=== PATIENT | male | born 1935 | race Caucasian/White ===

== ENCOUNTER → 2016-09-06 | Outpatient (CLI) | payer MEDICARE, OTHER ==
[~2016-09-06] MED LIST: AMOXIL500 MG PO; ASPIRIN325 MG PO; BEANO150 UNIT PO; BIOTENE ORALBAL42 GM PO; BIOTENE237 ML PO; BROVANA15 MCG/2 M INH; CALTRATE 600 WI1 TAB PO; COLACE100 MG PO; DESONIDE 0.05%15 GM TOP; DETROL LA4 MG PO; DUONEB 3.0-0.5 M3 ML INH; ECONAZOLE NITRA30 GM TOP; FERROUS SULFAT325 M1 PO; FLOMAX0.4 MG PO; GAS RELIEF80 MG PO; GENICIN500 MG PO; GLUCOSAMINE CH1 EAC1 PO; HUMULIN R100 UNIT/1 SUBCUT; IRON159 MG PO; KEFLEX500 MG PO; KLOR-CON M1010 MEQ PO; LACTAID3000 UNIT PO; LANTUS100 UNIT/1 SUBCUT; LASIX40 MG PO; LEVEMIR FL100 UNIT/1 SUBCUT; LOVENOX40 MG/0.4 SUBCUT; MILK OF MAGNESI30 ML PO; MIRALAX17 GM PO; MOBIC15 MG PO; MOBIC7.5 MG PO; MUCINEX600 MG PO; NORCO 325-5 MG1 TAB PO; NOVOLOG FL100 UNIT/1 SUBCUT; NYSTOP15 GM TOP; OXYCODONE HCL5 MG PO; PERCOCET 325-51 TAB PO; PREDNISONE10 MG PO; PREDNISONE5 MG PO; PREVIDENT 500051 GM PO; PRILOSEC20 MG PO; PRINIVIL20 MG PO; PROAIR HFA8.5 GM INH; PULMICORT0.5 MG/2 M INH; SILVADENE20 GM TOP; SIMVASTATIN40 MG PO; SINGULAIR10 MG PO; SYNTHROID200 MCG PO; THERA M PLUS T1 EACH PO; TUMS500 MG PO; TYLENOL325 MG PO; TYLENOL500 MG PO; ULTRAM50 MG PO; WELLBUTRIN SR150 MG PO; ZYRTEC10 MG PO; [UNRECOGNIZED DRUG - OTHER] PO; [UNRECOGNIZED DRUG - OTHER] TOP
== END | disposition short-term general hospital (02) ==
LOC: CLORTH 09:58
DX: T84.033A Mechanical loosening of internal left knee prosthetic joint, initial encounter (principal); M25.862 Other specified joint disorders, left knee; Z96.652 Presence of left artificial knee joint

== ENCOUNTER → 2016-09-19 | Outpatient (CLI) | payer MEDICARE, OTHER | END | disposition short-term general hospital (02) | LOC: CLPULM 05:37 | DX: J44.9 Chronic obstructive pulmonary disease, unspecified (principal); G47.33 Obstructive sleep apnea (adult) (pediatric); E66.9 Obesity, unspecified; E78.5 Hyperlipidemia, unspecified; I50.9 Heart failure, unspecified; E03.9 Hypothyroidism, unspecified; E11.9 Type 2 diabetes mellitus without complications; R91.1 Solitary pulmonary nodule; Z85.51 Personal history of malignant neoplasm of bladder; Z96.641 Presence of right artificial hip joint; Z96.651 Presence of right artificial knee joint; Z87.891 Personal history of nicotine dependence ==

== ENCOUNTER → 2016-11-03 | Outpatient (CLI) | payer MEDICARE, OTHER | END | disposition short-term general hospital (02) | LOC: CLCARD 08:55 | DX: I25.10 Atherosclerotic heart disease of native coronary artery without angina pectoris (principal); I45.2 Bifascicular block; I80.9 Phlebitis and thrombophlebitis of unspecified site; E78.5 Hyperlipidemia, unspecified; I10 Essential (primary) hypertension; E66.9 Obesity, unspecified; E11.9 Type 2 diabetes mellitus without complications; J44.9 Chronic obstructive pulmonary disease, unspecified; G47.30 Sleep apnea, unspecified ==